=== PATIENT | male | born 1965 | race African-American/Black ===

== ENCOUNTER 2018-06-06 01:05 | Emergency (ER) | payer OTHER ==
[~2018-06-06] VITALS: Ht 182.9 cm; Wt 104.3 kg
--- NOTE | ~2018-06-06 | EKG ---
[place] [address] [address] [place] [address] ELECTROCARDIOGRAM REPORT Name: PAOLA HERBERT [id number] Admission: 06/06/18 Attend Phys: Discharge: 06/06/18 Date of : 67 Report #: [id number] THIS REPORT FOR: //name// [facility] ED Test Date: 2018-06-06 Test Time: 01:11:21 Pat Name: PAOLA HERBERT Department: Room: Gender: M Senior Climate Advisor: MAKENNA GALVIN : 1965 Requested By: Alejandro Toribio Order Number: [id number] MD: Curtis Wills Measurements Intervals [place] Rate: 79 P: 63 [place]: 155 QRS: -51 QRSD: 90 T: 25 QT: 392 QTc: 450 Interpretive Statements Sinus rhythm RSR' in V1 or V2, right VCD or RVH Inferior infarct, old Minimal ST elevation, anterior leads Compared to ECG 07/18/2011 07:18:11 Right ventricular hypertrophy now present RSR' in V1 or V2 now present Myocardial infarct finding now present ST (T wave) deviation now present Left-axis deviation no longer present T-wave abnormality no longer present Electronically Signed On 06-07-2018 20:29:20 [employer] OUT[employer] by Curtis Wills [email or web address] <ELECTRONICALLY SIGNED> By: Curtis Wills MD 06/07/182028 0 0 Curtis Wills MD /EPI
[~2018-06-06 01:05] MED LIST: HYDROCODON-ACE1 EAC5; PRINZIDE 20-121 EACH PO; PROTONIX40 M2 PO
[2018-06-06 01:37] LABS: ABSOLUTE NEUTROPHILS 5.2 thou/uL (1.4-8.2); BASOPHILS 1.1 % (0.0-2.0); EOSINOPHILS 1.6 % (0.0-3.0); HEMATOCRIT 50.9 % (42.0-52.0); HEMOGLOBIN 17.5 gm/dL (14.0-18.0); LYMPHOCYTES 28.4 % (24.0-44.0); MCH 29.3 pg (26.0-34.0); MCHC 34.3 g/dL (28.0-37.0); MCV 85.3 fL (80.0-100.0); MONOCYTES 11.5 % (1.0-8.0); PLATELET COUNT 156 thou/uL (150-400); POLYS 57.4 % (36.0-66.0); RBC 5.97 mil/uL (4.50-6.00); RDW 14.7 % (10.5-14.5); WBC 9.1 thou/uL (4.0-11.0)
[2018-06-06 01:41] LABS: ANION GAP 9 mmol/L (7-16); BUN 18 mg/dL (7-18); CALCIUM 9.3 mg/dL (8.5-10.1); CHLORIDE 101 mmol/L (98-107); CO2 30 mmol/L (21-32); CREATININE 1.1 mg/dL (0.7-1.3); GLUCOSE 99 mg/dL (74-106); POTASSIUM 3.6 mmol/L (3.5-5.1); SODIUM 140 mmol/L (136-145)
[2018-06-06 01:50] LABS: TROPONIN-I <0.06 ng/mL (<0.06)
[2018-06-06] MEDS ORDERED: NORFLEX100 MG PO (03:46)
[2018-06-06] MEDS ORDERED: IBUPROFEN 600600 M1 PO (03:46)
[2018-06-06] MEDS ORDERED: NORCO 5-325 TA1 EACH PO (03:46)
[2018-06-06 04:09] VITALS: BP 125/98
== END 2018-06-06 04:09 | disposition home or self-care (01) ==
LOC: ER 01:05
PROVIDERS: Emergency Medicine
DX: R07.81 Pleurodynia (principal); I10 Essential (primary) hypertension; K21.9 Gastro-esophageal reflux disease without esophagitis

== ENCOUNTER 2020-04-19 17:50 | Emergency (ER) | payer OTHER ==
[~2020-04-19] VITALS: Ht 182.9 cm; Wt 108.0 kg
[~2020-04-19 17:50] MED LIST changes: +IBUPROFEN 600600 M1 PO; +NORCO 5-325 TA1 EACH PO; +NORFLEX100 MG PO
[2020-04-19 18:00] LABS: URINE BILIRUBIN NEGATIVE (Negative); URINE BLOOD NEGATIVE (Negative); URINE CLARITY CLEAR; URINE COLOR YELLOW; URINE GLUCOSE-RANDOM* NEGATIVE (Negative); URINE KETONES NEGATIVE (Negative); URINE LEUKOCYTES-REFLEX NEGATIVE (Negative); URINE NITRITE-REFLEX NEGATIVE (Negative); URINE PROTEIN (DIPSTICK) NEGATIVE (Negative); URINE SPECIFIC GRAVITY >= 1.030 (1.005-1.035); URINE UROBILINOGEN 0.2 E.U./dl (0.2-1.0)
[2020-04-19 18:36] LABS: ABSOLUTE NEUTROPHILS 4.7 thou/uL (1.4-8.2); BASOPHILS 0.8 % (0.0-2.0); EOSINOPHILS 1.8 % (0.0-3.0); HEMOGLOBIN 15.5 gm/dL (14.0-18.0); LYMPHOCYTES 32.1 % (24.0-44.0); MCH 29.3 pg (26.0-34.0); MCHC 33.8 g/dL (28.0-37.0); MCV 86.9 fL (80.0-100.0); MONOCYTES 9.9 % (1.0-8.0); PLATELET COUNT 143 thou/uL (150-400); POLYS 55.4 % (36.0-66.0); RBC 5.29 mil/uL (4.50-6.00); RDW 14.4 % (10.5-14.5); WBC 8.4 thou/uL (4.0-11.0)
[2020-04-19 18:44] LABS: CALCIUM 8.9 mg/dL (8.5-10.1); POTASSIUM 4.3 mmol/L (3.5-5.1)
[2020-04-19 18:50] LABS: ALBUMIN 3.9 g/dL (3.4-5.0); TOTAL BILIRUBIN 0.3 mg/dL (0.2-1.0); TOTAL PROTEIN 7.5 g/dL (6.4-8.2)
[2020-04-19] MEDS ORDERED: CARAFATE 1 GM TA1 G1 PO (21:26)
[2020-04-19 21:42] VITALS: BP 137/89
--- NOTE | 2020-04-20 07:55 | EKG ---
[facility] [place] [place] [address] ELECTROCARDIOGRAM REPORT Name: PAOLA HERBERT Room #: [facility]#: [id number] Admission: 04/19/20 Attend Phys: Discharge: 04/19/20 Date of : 67 Report #: [id number] THIS REPORT FOR: cc: Elina Scott K. Steven DO Santiago, Patrick MD [facility] ~ THIS REPORT FOR: //name// 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[facility] : 1965 Requested By: Gray Monique Order Number: [id number] MD: Crow Ames Measurements Intervals [place] Rate: 75 P: -21 NV: 142 QRS: -61 QRSD: 87 T: 32 QT: 400 QTc: 447 Interpretive Statements Sinus rhythm Probable right ventricular hypertrophy Inferior infarct, old Baseline wander in lead(s) III,aVF,V1,V2,V4 Compared to ECG 06/06/2018 01:11:21 ST (T wave) deviation no longer present Myocardial infarct finding still present Electronically Signed On 04-20-2020 7:55:02 CDT by Crow Ames [email or web address] <ELECTRONICALLY SIGNED> By: Crow Ames MD, FACC 04/20/20 [id number] Crow Ames MD, FACC /EPI
== END 2020-04-19 21:43 | disposition home or self-care (01) ==
LOC: ER 17:50
PROVIDERS: Physician Assistant
DX: R10.84 Generalized abdominal pain (principal); K21.9 Gastro-esophageal reflux disease without esophagitis; R11.0 Nausea; I10 Essential (primary) hypertension; Z79.899 Other long term (current) drug therapy